=== PATIENT | male | born 1950 | race African-American/Black ===

== ENCOUNTER 2018-11-05 03:05 | Emergency (ER) | payer MEDICARE, MEDICAID ==
[~2018-11-05] VITALS: Ht 170.2 cm; Wt 73.0 kg
[2018-11-05] MEDS ORDERED: HYDROCODONE/ACETAMINOPHEN 5/325MG TABLET PO ONE (05:15)
[2018-11-05 07:35] VITALS: BP 127/92
== END 2018-11-05 07:35 | disposition home or self-care (01) ==
LOC: ER 03:05
DX: M25.571 Pain in right ankle and joints of right foot (principal); M25.559 Pain in unspecified hip; G89.29 Other chronic pain; M54.9 Dorsalgia, unspecified; I11.9 Hypertensive heart disease without heart failure; M19.90 Unspecified osteoarthritis, unspecified site; Z86.73 Personal history of transient ischemic attack (TIA), and cerebral infarction without residual deficits; Z96.659 Presence of unspecified artificial knee joint
CPT/HCPCS: 73610; 99283

== ENCOUNTER 2019-05-05 18:59 | Emergency (ER) | payer MEDICARE, MEDICAID ==
[~2019-05-05] VITALS: Ht 172.7 cm; Wt 89.0 kg
[2019-05-05] MEDS ORDERED: KETOROLAC 30MG/ML VIAL IV STA (21:03)
[2019-05-05] MEDS ORDERED: NITROGLYCERIN 0.4MG TABLET SL SL PRN (21:15)
[2019-05-05] MEDS ORDERED: ASPIRIN 81MG TABLET PO ONE (21:15)
[2019-05-05 21:26] LABS: BASOPHILS % 1.3 % (0.0-2.0); EOSINOPHILS % 1.3 % (0.0-5.0); HEMATOCRIT. 41.5 % (42.0-52.0); HEMOGLOBIN. 13.4 g/dL (14.0-18.0); LYMPHOCYTES % 34.4 % (20.0-50.0); MEAN CORPUSCULAR HEMOGLOBIN 27.2 pg (28.0-32.0); MEAN CORPUSCULAR VOLUME 84.1 fL (80.0-94.0); MEAN PLATELET VOLUME 7.8 fl (7.4-10.4); MONOCYTES % 10.8 % (2.0-8.0); NEUTROPHILS % 52.2 % (40.0-76.0); PLATELET 212 x1000/uL (130-400); RED BLOOD CELL COUNT 4.93 mill/uL (4.7-6.1)
[2019-05-05 21:33] LABS: CHLORIDE 110 mEq/L (98-107)
[2019-05-05] MEDS ORDERED: HYDROCODONE/ACETAMINOPHEN 5/325MG TABLET PO ONE (22:45)
[2019-05-05 22:47] VITALS: BP 151/120
[2019-05-06] MEDS ORDERED: CLONIDINE 0.1MG TABLET PO ONE (01:15)
== END 2019-05-06 01:24 | disposition home or self-care (01) ==
LOC: ER 18:59
DX: S50.02XA Contusion of left elbow, initial encounter (principal); R07.89 Other chest pain; J45.909 Unspecified asthma, uncomplicated; I25.2 Old myocardial infarction; I10 Essential (primary) hypertension; V89.2XXA Person injured in unspecified motor-vehicle accident, traffic, initial encounter; Y93.89 Activity, other specified; Y92.89 Other specified places as the place of occurrence of the external cause; Y99.8 Other external cause status
CPT/HCPCS: 36415; 71045; 73080; 73110; 80053; 83880; 84484; 85025; 93005; 96374; 99285; J1885